=== PATIENT | male | born 1965 | race Caucasian/White ===

== ENCOUNTER 2022-02-14 03:25 | Emergency (ER) | payer OTHER, SELFPAY ==
--- NOTE | ~2022-02-14 | XR_ITS ---
EXAMINATION: XR chest 2V 02/14/2022 04:14 INDICATION: Dyspnea PROCEDURE: PA and lateral views of the chest COMPARISON: No prior studies for comparison. FINDINGS: The lungs are clear. The cardiomediastinal silhouette is within normal limits. There are no pleural effusions. There is no pneumothorax suspected. IMPRESSION: 1: NO ACUTE CARDIOPULMONARY DISEASE. Reviewed, dictated and finalized at location A.
[2022-02-14 03:25] VITALS: BP 111/69; PULSE 120; RESP 20; TEMP 36.9; O2SAT 100
--- NOTE | 2022-02-14 03:40 | ED.SOB ---
HPI - SOB/Dyspnea General Chief Complaint: Shortness of Breath/Dyspnea Stated Complaint: SOB Time Seen by Provider: 02/14/22 03:40 Source: patient, EMS and RN notes reviewed Mode of arrival: EMS Limitations: no limitations History of Present Illness HPI Narrative: 56-year-old male recently discharged from [facility] with a diagnosis throat cancer. He has large mass on the left side of his neck and has had partial resection of his tongue. He woke up with sudden onset of shortness of breath difficulty breathing felt like something was stuck in his lung. He called EMS and was given nebulizer treatment and Solu-Medrol and this seemed to have cleared the mucus plug. Patient states that he is completely resolved and feels much better. MD elicited complaint: shortness of breath Onset (ago): minute(s) Context: choking/aspiration Timing: now resolved Severity: severe Exacerbating factors: nothing Relieving factors: oxygen and bronchodilators Associated symptoms: denies other symptoms Treatment prior to arrival: bronchodilator and other ( Solu-Medrol) Related Data Home oxygen amount: none Home Medications Medication Instructions Recorded Confirmed ciprofloxacin HCl 500 mg tablet 500 mg feeding tube Q12H 02/14/22 02/14/22 metronidazole 500 mg tablet 500 mg feeding tube Q8H 02/14/22 02/14/22 oxycodone 5 mg tablet 5 mg feeding tube Q4H PRN 02/14/22 02/14/22 Breakthrough Pain Allergies Allergy/AdvReac Type Severity Reaction Status Date / Time No Known Allergies Allergy Verified 02/14/22 03:36 Review of Systems Review of Systems: All systems reviewed & are unremarkable except as noted in HPI and below PMFSH Past Medical History Medical History (Updated 02/14/22 @ 06:51 by Montez Claros MD) Throat cancer Surgical History Surgical History (Updated 02/14/22 @ 04:03 by Montez Claros MD) History of cancer surgery partial left tongue and bilateral lymph nodes in the neck Social History Social History (Updated 02/14/22 @ 03:58 by Montez Claros MD) Smoking status: Former smoker Tobacco type: cigarettes Exam Const: General: no acute distress, alert and ill appearing chronically Nutritional Appearance: well nourished and thin Orientation/consciousness: patient oriented x3 Limitations: no limitations HENMT: Head: normal to inspection Ears: hearing grossly normal bilaterally Face and sinus: other ( mass on left mandibula) Mouth: Yes tongue abnormal ( partially surgically absent) Teeth and gingiva: poor dentition Eyes: Conjunctivae: conjunctivae normal Pupils: Equal, round and reactive pupils present EOM: EOMs intact bilaterally Neck: Neck: normal visual inspection Resp: Effort & Inspection: normal respiratory effort Auscultation: clear to auscultation bilaterally Cardio: Rate: tachycardic Rhythm: regular rhythm GI: GI Palp: Yes Soft to palpation and No Tenderness to palpation present (GI) Auscultation: normal bowel sounds Back/Spine/Pelvis: Cervical Spine: cervical ROM normal Thoracic/Lumbar Spine: thoraco-lumbar ROM normal Skin: General skin exam: normal color Rashes: no rashes Neuro: General: patient oriented x3, moves all extremities, no focal motor deficits and CN's II-XI intact bilaterally Speech: normal speech Gait exam (Neuro): Normal gait present Extrem: General: normal to inspection and no clubbing, cyanosis or edema Psych: Mental Status: mental status grossly normal Affect: normal affect Attitude: cooperative Course Course Emergency Course: patient has been stable here without any difficulty with breathing or swallowing. He is able to take fluids. I am going to treat him as if he had aspiration pneumonia. We were able to get previous records which showed his last white count was at 14 and now it is elevated at 20. He is currently on ciprofloxacin I am going to add clindamycin 3 times daily for 10 days. Vital Signs Vital signs: Vital Signs Temperature
[2022-02-14 04:06] LABS: Basophils Absolute Auto 0.05 K/mm3 (0.00-0.10); Basophils Percent Auto 0.2 % (0.0-1.0); Eosinophils Absolute Auto 0.11 K/mm3 (0.02-0.50); Eosinophils Percent Auto 0.5 % (1.0-6.0); Hematocrit 28.2 % (40.0-54.0); Immature Granulocyte Absolute 0.12 K/mm3 (0.00-0.00); Immature Granulocyte Percent A 0.6 % (0.0-0.0); Lymphocytes Absolute Auto 0.54 K/mm3 (1.10-4.50); Lymphocytes Percent Auto 2.7 % (18.0-42.0); Mean Corpuscular HGB Conc 31.9 g/dL (32.0-36.0); Mean Corpuscular Hemoglobin 29.4 pg (27.0-31.0); Mean Corpuscular Volume 92.2 fL (78.0-102.0); Mean Platelet Volume 8.8 fl (8.7-11.0); Neutrophils Absolute Auto 18.1 K/mm3 (1.7-7.2); Platelet Count Result 560 K/mm3 (150-420); Red Blood Count 3.06 M/mm3 (4.70-6.10); Red Cell Distribution Width 13.1 % (11.6-14.4)
[2022-02-14 04:12] VITALS: BP 95/68; PULSE 110; RESP 20; O2SAT 97
--- NOTE | 2022-02-14 04:12 | PC.NURSE ---
Pt given ice water and able to tolerate sips of water s difficulty, pt reports breathing easier, VSS. Call bhandari at pt side.
[2022-02-14 04:26] LABS: Alanine Aminotransferase 23 U/L (16-63); Albumin Level 2.3 g/dL (3.4-5.0); Alkaline Phosphatase 93 U/L (46-116); Anion Gap 8 mmol/L (8-16); Aspartate Amino Transferase 15 U/L (15-37); Bilirubin,Total 0.2 mg/dL (0.00-1.00); Blood Urea Nitrogen 20 mg/dL (7-18); CRP > 10.6 mg/dL (0.0-0.9); Carbon Dioxide 28 mmol/L (21-32); Chloride 97 mmol/L (98-108); Estimated CRCL calculation 67 ml/min; Estimated Glomerular Filt Rate > 60; Glucose 116 mg/dL (70-99); Magnesium 1.9 mg/dL (1.8-2.4); Osmolality Calculated 279 mOsm/kg (285-295); Potassium 4.2 mmol/L (3.5-5.1); Sodium 133 mmol/L (136-145); Total Protein 6.5 g/dL (6.4-8.2)
--- NOTE | 2022-02-14 04:39 | PC.NURSE ---
ERP in to discuss lab results and Xray results c pt and POC. Will obtain medical records from [facility] hospitalization.
--- NOTE | 2022-02-14 05:00 | PC.NURSE ---
Release of medical info form signed by pt and faxed to [facility] for records of visit and d/c summary from 02/13/22.
[2022-02-14 05:05] VITALS: BP 101/73; PULSE 102; RESP 18; O2SAT 98
--- NOTE | 2022-02-14 05:31 | PC.NURSE ---
Lab results obtained via phone call from Gutierrez Lewis at [facility], results given to Dr Claros, no new orders at this time, will observe for couple hrs. then d/c home. Pt sleeping comfortably, no distress, RR even and nonlabored, VSS. Call bhandari at side.
[2022-02-14 05:52] VITALS: BP 102/75; PULSE 100; RESP 18; O2SAT 98
--- NOTE | 2022-02-14 05:54 | PC.NURSE ---
Pt ambulated steadily to BR to urinate s difficulty. Back to bed, VSS, no c/o at this time.
--- NOTE | 2022-02-14 06:44 | PC.NURSE ---
Pt resting in bed, texting on his phone, states he has a ride home from family member if d/c home. Pt reports feeling better and has no further sxs of SOB. VSS.
[2022-02-14 07:00] VITALS: BP 108/66; PULSE 96; RESP 18; TEMP 36.8; O2SAT 99
[2022-02-14 07:03] VITALS: BP 108/66; PULSE 96; RESP 18; TEMP 36.8; O2SAT 99
== END 2022-02-14 07:07 | disposition home or self-care (01) ==
PROVIDERS: Emergency Provider Emergency Medicine
DX: T17.908A Unspecified foreign body in respiratory tract, part unspecified causing other injury, initial encounter (principal)
CPT/HCPCS: 36415; 71046; 80053; 83735; 85025; 86140; 99283

== ENCOUNTER 2022-02-16 04:25 | Emergency (ER) | payer OTHER, SELFPAY ==
--- NOTE | ~2022-02-16 | XR_ITS ---
EXAMINATION: XR chest 2V DATE: 02/16/2022 05:50 INDICATION: Cough. Shortness of breath. TECHNIQUE: Frontal and lateral views of the chest were obtained. COMPARISON: Chest 2 views 02/14/2022 FINDINGS: The chest demonstrates clear lungs without pneumonia, pleural effusion, or pneumothorax. Th e heart size is normal. There are surgical clips in left neck. IMPRESSION: 1. No acute cardiopulmonary disease. Reviewed, dictated and finalized at location A.
[2022-02-16 04:30] VITALS: BP 120/70; PULSE 110; RESP 20; TEMP 38.3; O2SAT 96
--- NOTE | 2022-02-16 04:53 | ECG_ITS ---
Measurements Intervals [place] Rate: 114 P: 69 SC: 125 QRS: 52 QRSD: 74 T: 49 QT: 318 QTc: 438 Interpretive Statements SINUS TACHYCARDIA POSSIBLE LEFT ATRIAL ENLARGEMENT [-0.1mV P-WAVE IN V1/V2] CANNOT RULE OUT SEPTAL MYOCARDIAL INFARCTION , OLD NO PREVIOUS ECG AVAILABLE FOR COMPARISON Electronically Signed On 02-16-2022 13:03:38 CDT by Tha Sorensen M.D.
[2022-02-16] MEDS: SODIUM CHLORIDE 0.9% IV 1,000 ML 999 ML IV CONT (05:00)
--- NOTE | 2022-02-16 05:16 | ED.GENADULT ---
HPI - General Adult General Chief complaint: Upper Respiratory Infection Stated complaint: SHORTNESS OF BREATH Source: patient Mode of arrival: ambulatory Limitations: no limitations ( patient is status post a biopsy of his tongue and so has slurred speech secondary to his surgery and it makes it difficult for this examiner to understand what he is saying.) History of Present Illness HPI narrative: Patient is a 56 year year old white male was discharged from [facility] with a diagnosis of throat cancer had a large mass on the left side of his neck had partial resection of his tongue was there at [facility] from February 04 to and then presented to the emergency room on the 14 of February stated he woke up and had sudden onset of shortness of breath with difficulty breathing felt like something was stuck in his lungs or his throat called EMS they gave him a nebulizer treatment Solu-Medrol by the time he got to the emergency room he was pretty much cleared and felt much better he had been on ciprofloxacin 500 mg q.12 hours and metronidazole 500 mg q.8 hours both through his G-tube. He is also on oxycodone 5 mg q.4 hours p.r.n. breakthrough pain white count had been 14 at the [facility] and the here was 20,000 he did well I was in the emergency room and was discharged with the diagnosis of aspiration into the airway clindamycin was added to his regimen. He did fine at home until this morning around 1:00 a.m. when he had the same feeling of sudden shortness of breath but now those symptoms have resolved. Says he only smokes 2 cigarettes a day but he has a strong tobacco odor about him. he denies any chest pain difficulty breathing now denies any nausea or vomiting. Related Data Home Medications Medication Instructions Recorded Confirmed ciprofloxacin HCl 500 mg tablet 500 mg feeding tube Q12H 02/14/22 02/16/22 metronidazole 500 mg tablet 500 mg feeding tube Q8H 02/14/22 02/16/22 oxycodone 5 mg tablet 5 mg feeding tube Q4H PRN 02/14/22 02/16/22 Breakthrough Pain Allergies Allergy/AdvReac Type Severity Reaction Status Date / Time No Known Allergies Allergy Verified 02/14/22 03:36 Review of Systems Review of Systems: All systems reviewed & are unremarkable except as noted in HPI and below Constitutional: Constitutional: Reports no additional constitutional complaints, Denies chills, Denies fatigue and Denies fever(s) Eyes: Eyes: Reports no additional eye complaints ENT: Reports system reviewed and no additional complaints, except as documented Comments: Patient only drinks water or ice chips through his mouth the rest of his nutrition is goes through his G-tube these gotten several months ago. Cardiovascular: Cardiovascular: Reports no additional cardiovascular complaints and Denies chest pain Comments: Chronic left jaw and neck pain from his cancer. Unchanged improved with OxyContin Respiratory: Respiratory: Reports as per HPI, Reports no additional respiratory complaints, Reports cough, Reports dyspnea and Denies wheezing Comments: patient states he did know he was wheezing. He says he smokes since he was 12 years old. Gastrointestinal: Gastrointestinal: Reports no additional gastrointestinal complaints, Denies abdominal pain, Denies constipation, Reports diarrhea, Denies nausea and Denies vomiting Comments: He has had 2 diarrheal stools in the last Genitourinary: Genitourinary: Reports no additional male genitourinary complaints, Denies urinary frequency and Denies urinary incontinence Comments: Says his urination is slow Musculoskeletal: Musculoskeletal: Reports no additional musculoskeletal complaints, Denies back pain, Denies myalgias, Denies arthralgias, Denies joint swelling and Denies muscle cramps Integumentary/Breasts: Skin/Breast: Denies rash Neurologic: Reports system reviewed and no additional complaints, except as documented, Denies dizziness, Denies headache(s), Denies focal weakne
[2022-02-16] MEDS: IPRATROPIUM 0.5 MG/ALBUTEROL SULFATE 2.5 MG AMPUL.NEB 3 ML INHALATION (05:17)
[2022-02-16 05:18] VITALS: RESP 19; O2SAT 96
[2022-02-16 05:19] VITALS: RESP 19; O2SAT 96
[2022-02-16] MEDS: ACETAMINOPHEN 650 MG SUPPOSITORY RECTAL (05:27)
[2022-02-16 05:37] LABS: Basophils Absolute Auto 0.02 K/mm3 (0.00-0.10); Basophils Percent Auto 0.1 % (0.0-1.0); Eosinophils Absolute Auto 0.03 K/mm3 (0.02-0.50); Eosinophils Percent Auto 0.2 % (1.0-6.0); Hematocrit 24.8 % (40.0-54.0); Immature Granulocyte Absolute 0.08 K/mm3 (0.00-0.00); Immature Granulocyte Percent A 0.5 % (0.0-0.0); Immature Platelet Fraction Pct 0.8 % (1.0-7.0); Lymphocytes Absolute Auto 1.12 K/mm3 (1.10-4.50); Lymphocytes Percent Auto 6.8 % (18.0-42.0); Mean Corpuscular HGB Conc 32.3 g/dL (32.0-36.0); Mean Corpuscular Hemoglobin 29.3 pg (27.0-31.0); Mean Corpuscular Volume 90.8 fL (78.0-102.0); Mean Platelet Volume 8.7 fl (8.7-11.0); Monocytes Absolute Auto 1.32 K/mm3 (0.10-0.90); Neutrophils Absolute Auto 13.9 K/mm3 (1.7-7.2); Neutrophils Percent Auto 84.4 % (50.0-70.0); Platelet Count Result 640 K/mm3 (150-420); Red Blood Count 2.73 M/mm3 (4.70-6.10); Red Cell Distribution Width 13.4 % (11.6-14.4); White Blood Count 16.5 K/mm3 (4.8-10.8)
[2022-02-16 05:48] LABS: INR 1.2; Partial Thromboplastin Time 31.3 SEC (23.90-30.70); Prothrombin Time 12.5 Seconds (9.50-12.10)
[2022-02-16 05:52] LABS: Lactic Acid Reflex 0.8 mmol/L (0.4-2.0)
[2022-02-16 06:00] LABS: Alanine Aminotransferase 21 U/L (16-63); Albumin Level 2.2 g/dL (3.4-5.0); Alkaline Phosphatase 80 U/L (46-116); Anion Gap 6 mmol/L (8-16); Aspartate Amino Transferase 10 U/L (15-37); Bilirubin,Total 0.2 mg/dL (0.00-1.00); Blood Urea Nitrogen 17 mg/dL (7-18); CRP 8.9 mg/dL (0.0-0.9); Calcium 8.7 mg/dL (8.5-10.1); Carbon Dioxide 29 mmol/L (21-32); Chloride 98 mmol/L (98-108); Estimated CRCL calculation 84 ml/min; Estimated Glomerular Filt Rate > 60; Glucose 100 mg/dL (70-99); Osmolality Calculated 277 mOsm/kg (285-295); Potassium 3.6 mmol/L (3.5-5.1); Sodium 133 mmol/L (136-145); Troponin I 5.7 ng/L (0.00-60.4)
[2022-02-16 06:01] LABS: NT Pro B Type Natriuretic Pept 406 pg/mL (0-125)
[2022-02-16 06:18] VITALS: TEMP 37.7
[2022-02-16 06:37] VITALS: BP 118/70; PULSE 100; RESP 20; TEMP 37.6; O2SAT 95
== END 2022-02-16 06:46 | disposition home or self-care (01) ==
PROVIDERS: Emergency Provider Emergency Medicine
DX: J44.1 Chronic obstructive pulmonary disease with (acute) exacerbation (principal); C14.0 Malignant neoplasm of pharynx, unspecified
CPT/HCPCS: 36415; 71046; 80053; 83605; 83880; 84484; 85025; 85055; 85610; 85730; 86140; 87040; 93005; 94640; 96361; 96365; 96367; 99284; A9270; J0692; J3370; J7030

== ENCOUNTER 2022-05-29 20:28 | Emergency (ER) | payer OTHER, SELFPAY ==
[2022-05-29 20:28] VITALS: BP 104/60; PULSE 100; RESP 20; TEMP 37; O2SAT 95
--- NOTE | 2022-05-29 20:48 | ED.GENADULT ---
HPI - General Adult General Chief complaint: Medical Clearance Stated complaint: chemo port came out History of Present Illness HPI narrative: The patient is a 57 year old male with a history of throat cancer, s/p resection of left neck mass, partial tongue resection, now on chemotherapy via a PORT. The needle accessing the PORT came out at home. They come in to have the PORT re-accessed for continued chemotherapy. No other complaints. Related Data Home Medications Medication Instructions Recorded Confirmed ciprofloxacin HCl 500 mg tablet 500 mg feeding tube Q12H 02/14/22 02/16/22 metronidazole 500 mg tablet 500 mg feeding tube Q8H 02/14/22 02/16/22 oxycodone 5 mg tablet 5 mg feeding tube Q4H PRN 02/14/22 02/16/22 Breakthrough Pain Allergies Allergy/AdvReac Type Severity Reaction Status Date / Time No Known Allergies Allergy Verified 02/14/22 03:36 Review of Systems Review of Systems: All systems reviewed & are unremarkable except as noted in HPI and below Constitutional: Constitutional: Reports no additional constitutional complaints, Reports anorexia, Denies body ache(s), Denies chills, Denies excessive sweating, Reports fatigue, Denies fever(s), Denies frequent falls, Denies headache(s), Reports malaise and Reports poor appetite Eyes: Eyes: Reports no additional eye complaints, Denies blurry vision, Denies change in vision, Denies irritation, Denies itchy eyes and Denies photophobia ENT: Reports system reviewed and no additional complaints, except as documented, Reports Normal hearing present, Denies change in voice, Denies vertigo, Denies dizziness, Denies ear discharge, Denies headache(s), Denies hearing loss, Denies hoarseness, Denies nasal congestion, Denies sinus pressure, Denies sore throat and Denies throat swelling Comments: neck mass on the left Cardiovascular: Cardiovascular: Reports no additional cardiovascular complaints, Denies chest pain, Denies syncope, Denies rapid heart rate, Denies irregular heart rhythm, Denies leg edema, Denies dyspnea and Denies slow heart rate Respiratory: Respiratory: Reports no additional respiratory complaints, Denies cough, Denies dyspnea, Denies stridor and Denies wheezing Gastrointestinal: Gastrointestinal: Reports no additional gastrointestinal complaints, Denies abdominal pain, Denies melena, Denies hematochezia, Denies dysphagia, Denies diarrhea, Denies nausea and Denies vomiting Genitourinary: Genitourinary: Denies hematuria, Denies oliguria, Denies dysuria, Denies flank pain, Denies urinary frequency and Denies urinary urgency Musculoskeletal: Musculoskeletal: Reports no additional musculoskeletal complaints, Denies abnormal gait, Denies back pain, Denies myalgias, Denies arthralgias, Denies joint swelling, Denies limited range of motion, Denies muscle cramps, Denies muscle weakness, Denies neck pain and Denies numbness Integumentary/Breasts: Skin/Breast: Reports system reviewed and no additional complaints, except as docu, Denies breast pain, Denies change in pigmentation, Denies pruritus, Denies erythema and Denies wounds Neurologic: Reports system reviewed and no additional complaints, except as documented, Reports Normal hearing present, Denies Abnormal speech present, Denies abnormal gait, Denies confusion, Denies vertigo, Denies dizziness, Denies syncope, Denies frequent falls, Denies headache(s), Denies focal weakness, Denies numbness and Denies paresthesias Psychiatric: Psychiatric: Reports no additional psychiatric complaints and Denies confusion Endocrine: Endocrine: Reports no additional endocrine complaints, Denies cold intolerance, Denies excessive sweating, Denies fatigue and Denies heat intolerance Hematologic/Lymphatic: Hematologic/Lymphatic: Reports no additional hematologic/lymphatic complaints, Denies easy bleeding and Denies easy bruising Allergic/Immunologic: Allergic/Immunologic: Reports no additional allergic/immunologic complaints, Denies urticaria, De
--- NOTE | 2022-05-29 21:27 | PC.NURSE ---
infusaport accessed using sterile technique. family connected chemo
[2022-05-29 21:29] VITALS: BP 110/60; PULSE 90; RESP 20; TEMP 37.2; O2SAT 95
== END 2022-05-29 21:20 | disposition home or self-care (01) ==
LOC: CHSED 21:03
PROVIDERS: Emergency Provider Emergency Medicine
DX: T82.524A Displacement of infusion catheter, initial encounter (principal); C14.0 Malignant neoplasm of pharynx, unspecified; F17.210 Nicotine dependence, cigarettes, uncomplicated; Y62 Failure of sterile precautions during surgical and medical care
CPT/HCPCS: 99282